=== PATIENT | female | born 1995 | race Caucasian/White ===

== ENCOUNTER → 2019-06-22 10:45 | Outpatient (BNVA) | payer OTHER, SELFPAY | PROVIDERS: Family Provider Family Medicine; PCP Family Medicine; Visit Provider Nurse Practitioner Women's Health | DX: Z11.3 Encounter for screening for infections with a predominantly sexual mode of transmission (principal); N92.6 Irregular menstruation, unspecified; Z13.1 Encounter for screening for diabetes mellitus; Z78.9 Other specified health status; Z12.4 Encounter for screening for malignant neoplasm of cervix | CPT/HCPCS: 83036; 84146; 84443; 84702; 86762; 87491; 87591; 87661 ==

== ENCOUNTER → 2019-06-25 09:09 | Outpatient (BNVA) | payer OTHER, SELFPAY | PROVIDERS: Family Provider Family Medicine; PCP Family Medicine; Referring Provider Nurse Practitioner Women's Health; Visit Provider Obstetrics & Gynecology | DX: N92.6 Irregular menstruation, unspecified (principal) | CPT/HCPCS: 76830; 76856 ==

== ENCOUNTER → 2019-06-27 10:30 | Outpatient (BNVA) | payer OTHER, SELFPAY | PROVIDERS: Family Provider Family Medicine; PCP Family Medicine; Visit Provider Nurse Practitioner Women's Health | DX: N92.6 Irregular menstruation, unspecified (principal); Z78.9 Other specified health status | CPT/HCPCS: 80053; 85025 ==

== ENCOUNTER → 2019-10-29 11:31 | Outpatient (BNVA) | payer OTHER, SELFPAY | PROVIDERS: Family Provider Family Medicine; PCP Family Medicine; Visit Provider Obstetrics & Gynecology | DX: Z32.01 Encounter for pregnancy test, result positive (principal) | CPT/HCPCS: 81025; 84702 ==

== ENCOUNTER → 2019-11-28 09:02 | Outpatient (BNVA) | payer OTHER, MEDICAID, SELFPAY | PROVIDERS: Family Provider Family Medicine; PCP Family Medicine; Visit Provider Obstetrics & Gynecology | DX: O30.001 Twin pregnancy, unspecified number of placenta and unspecified number of amniotic sacs, first trimester (principal); E28.2 Polycystic ovarian syndrome | CPT/HCPCS: 80053; 80307; 82950; 84315; 85027; 86592; 86762; 86803; 86850; 86900; 87340; 87806 ==

== ENCOUNTER → 2019-12-12 07:58 | Outpatient (BNVA) | payer OTHER, MEDICAID, SELFPAY | PROVIDERS: Family Provider Family Medicine; PCP Family Medicine; Visit Provider Obstetrics & Gynecology | DX: O09.90 Supervision of high risk pregnancy, unspecified, unspecified trimester (principal); O30.001 Twin pregnancy, unspecified number of placenta and unspecified number of amniotic sacs, first trimester; Z3A.00 Weeks of gestation of pregnancy not specified | CPT/HCPCS: 84315; 87491; 87591 ==

== ENCOUNTER → 2020-04-02 12:16 | Outpatient (BNVA) | payer MEDICAID, SELFPAY | PROVIDERS: Family Provider Family Medicine; PCP Family Medicine; Visit Provider Obstetrics & Gynecology | DX: O09.90 Supervision of high risk pregnancy, unspecified, unspecified trimester (principal) | CPT/HCPCS: 81000; 82950; 85025 ==

== ENCOUNTER 2020-04-21 14:40 | Outpatient (CLI) | payer OTHER, MEDICAID, SELFPAY ==
[2020-04-21] VITALS (31 sets, daily range): BP systolic 118–134; BP diastolic 71–80; PULSE 90–140; RESP 17–18; TEMP 36.3; O2SAT 92–100; BMI 36.0
== END 2020-04-21 17:15 | disposition home or self-care (01) ==
LOC: OBGYN 17:09 → OPOB 04-22 08:55 → OBGYN 04-22 08:55
PROVIDERS: Family Provider Family Medicine; PCP Family Medicine; Visit Provider Obstetrics & Gynecology
DX: O26.899 Other specified pregnancy related conditions, unspecified trimester (principal); R00.0 Tachycardia, unspecified; R06.02 Shortness of breath
CPT/HCPCS: 99211; G0378; G0379

== ENCOUNTER → 2020-05-06 14:33 | Outpatient (BNVA) | payer MEDICAID, SELFPAY | PROVIDERS: Family Provider Family Medicine; PCP Family Medicine; Visit Provider Nurse Practitioner Women's Health | DX: O30.001 Twin pregnancy, unspecified number of placenta and unspecified number of amniotic sacs, first trimester; Z3A.00 Weeks of gestation of pregnancy not specified | CPT/HCPCS: 81000 ==

== ENCOUNTER → 2020-07-22 15:21 | Outpatient (BNVA) | payer BC, MEDICAID, SELFPAY | PROVIDERS: Family Provider Family Medicine; PCP Family Medicine; Visit Provider Obstetrics & Gynecology | DX: Z30.430 Encounter for insertion of intrauterine contraceptive device (principal) | CPT/HCPCS: 81025 ==

== ENCOUNTER → 2021-07-29 13:48 | Outpatient (BNVA) | payer BC, MEDICAID, SELFPAY | PROVIDERS: Family Provider Family Medicine; PCP Family Medicine; Visit Provider Internal Medicine | DX: R63.5 Abnormal weight gain (principal); E28.2 Polycystic ovarian syndrome; F17.200 Nicotine dependence, unspecified, uncomplicated; Z79.84 Long term (current) use of oral hypoglycemic drugs; Z68.32 Body mass index [BMI] 32.0-32.9, adult | CPT/HCPCS: 99214 ==

== ENCOUNTER 2021-12-04 11:54 | Outpatient (CLI) | payer BC, MEDICAID, SELFPAY ==
[2021-12-04 12:41] LABS: Free T4 Free Thyroxine 1.59 ng/dL (0.82-1.77); Thyroid Stimulating Hormone 1.25 uIU/mL (0.27-4.20)
== END 2021-12-04 11:55 | disposition home or self-care (01) ==
LOC: LAB 11:57
PROVIDERS: Visit Provider Internal Medicine
DX: R63.5 Abnormal weight gain (principal)
CPT/HCPCS: 84439; 84443

== ENCOUNTER 2022-07-27 09:20 | Outpatient (CLI) | payer BC, MEDICAID, SELFPAY ==
--- NOTE | 2022-07-27 09:33 | US_ITS ---
WS: [id number] ULTRASOUND RIGHT BREAST HISTORY: LUMP IN RIGHT BREAST COMPARISON: None available. TECHNIQUE: 2-D and Doppler. Ultrasound is directed to the palpable area at 2:00. This is directed by the patient. There is no mas s identified in the RIGHT breast near the 2:00 axis. The adjacent breast tissues are also imaged with no abnormality. US/US breast RT limited* [id number] IMPRESSION: BI-RADS: 1-Negative FOLLOW-UP: See Report No ultrasound abnormality RIGHT breast at 2:00. No additional imaging necessary .
== END 2022-07-27 09:21 | disposition home or self-care (01) ==
PROVIDERS: Visit Provider Nurse Practitioner Women's Health
DX: N63.10 Unspecified lump in the right breast, unspecified quadrant (principal)
CPT/HCPCS: 76642

== ENCOUNTER → 2022-09-28 09:42 | Outpatient (BNVA) | payer BC, MEDICAID, SELFPAY | PROVIDERS: Visit Provider Internal Medicine | DX: E28.2 Polycystic ovarian syndrome (principal); R63.5 Abnormal weight gain | CPT/HCPCS: 36415; 80061; 83525 ==

== ENCOUNTER 2022-10-16 23:54 | Emergency (ER) | payer BC, MEDICAID, SELFPAY ==
[2022-10-17] VITALS: BP 121/80; PULSE 103; RESP 18; TEMP 36.7; O2SAT 100; BMI 28.0
--- NOTE | 2022-10-17 00:30 | XRR_ITS ---
PROCEDURE INFORMATION: Exam: XR Chest Exam date and time: 10/17/2022 12:42 AM Age: 27 years old Clinical indication: Pain; Chest pressure; Additional info: Cp TECHNIQUE: Imaging protocol: Radiologic exam of the chest. Views: 1 view. COMPARISON: No relevant prior studies available. FINDINGS: Lungs: No CHF/pulmonary edema. Visible lungs appear essentially clear. Pleural spaces: No visible pneumothorax. No definite pleural fluid. Heart/Mediastinum: Heart size is within normal limits. Bones/joints: No significant acute finding. XR/XR chest 1V portable [id number] IMPRESSION: 1. No definite CHF or pneumonia. 2. Other findings discussed above.
--- NOTE | 2022-10-17 00:30 | ECG_ITS ---
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 Measurements Intervals [place] Rate: 104 P: 75 MT: 159 QRS: 69 QRSD: 101 T: 62 QT: 312 QTc: 411 Interpretive Statements SINUS TACHYCARDIA LOW QRS VOLTAGE IN PRECORDIAL LEADS [QRS DEFLECTION < 1.0 mV IN CHEST LEADS] ABNORMAL RHYTHM ECG No previous ECG available for comparison Electronically Signed On 10-17-2022 12:34:57 CDT by Malcik Carpenter M.D. [email or web address]
[2022-10-17 00:41] LABS: Basophils % 0.5 %; Eosinophils # 0.2 10^3/uL (0.0-0.8); Eosinophils % 2.1 %; Hematocrit 42.9 % (37.0-47.0); Hemoglobin 14.1 g/dL (11.5-15.3); Lymphocytes # 2.9 10^3/uL (0.8-4.8); Mean Corpuscular HGB Conc 32.9 g/dL (30.0-36.0); Mean Corpuscular Hemoglobin 27.6 pg (28.0-34.0); Mean Corpuscular Volume 84.1 fl (81-99); Mean Platelet Volume 9.8 fL (7.4-10.4); Monocytes # 0.5 10^3/uL (0.2-0.9); Monocytes % 6.7 %; Neutrophils # 3.83 10^3/uL (1.8-7.7); Neutrophils % 51.4 %; Nucleated Red Blood Cells % 0 %; Platelet Count 281 10^3/cmm (130-400); Red Cell Distribution Width 11.9 % (12.1-15.1); White Blood Count 7.5 10^3/uL (4.0-10.0)
[2022-10-17 00:43] VITALS: PULSE 96; RESP 16; O2SAT 98
[2022-10-17 01:07] LABS: HCG, Serum Qual Negative (Negative)
[2022-10-17 01:10] VITALS: BP 105/72; PULSE 87; RESP 16; O2SAT 97
[2022-10-17 01:10] LABS: Troponin(5th) Baseline 6 ng/L (0-10)
[2022-10-17 01:19] LABS: Alanine Aminotransferase 15 U/L (0-33); Albumin Level 4.4 g/dL (3.5-5.2); Alkaline Phosphatase 50 U/L (35-105); Anion Gap 15.7 (5-19); Aspartate Amino Transferase 11 U/L (0-32); Blood Urea Nitrogen 13 mg/dL (6-20); Carbon Dioxide 25 mmol/L (22-29); Chloride 104 mmol/L (98-107); Globulin 2.7 g/dL (1.3-4.6); Glomerular Filtration Rate 75.7 mL/min (90-130); Glucose 94 mg/dL (65-115); NT Pro B Type Natriuretic Pept 36 pg/mL (0-125); Osmolality Calculated 292 mOsm/kg (285-295); Potassium 3.7 mmol/L (3.5-5.1); Sodium 141 mmol/L (136-145); Total Bilirubin 0.4 mg/dL (0.15-1.2); Total Protein 7.1 g/dL (6.6-8.7)
[2022-10-17] MEDS: ketorolac 30 mg/mL INJ 15 MG IVP (01:56)
[2022-10-17] MEDS: ondansetron 2 mg/ML SDV 2 mL 4 MG IVP (01:57)
[2022-10-17 02:09] VITALS: BP 105/72; PULSE 87; RESP 16; TEMP 36.7; O2SAT 97
--- NOTE | 2022-10-17 02:22 | ED_ITS ---
HPI - Chest Pain General: Chief Complaint: Chest Pain Stated Complaint: chest pain Time Seen by Provider: 10/17/22 00:28 Source: patient History of Present Illness: 27-year-old female with centralized chest discomfort. It is somewhat sharp in nature. She is not overly short of breath. She does feel like it is hard to breathe. No fever, no increased cough. No vomiting. MD complaint: chest pain Pertinent past history: other Onset (ago): hour(s) Timing of current episode: constant Onset: during rest Pain location: substernal Relieving factors: nothing Exacerbating factors: nothing Associated symptoms: Reports dyspnea; Deny abdominal pain, fever(s), leg edema or vomiting Review of Systems Const: Denies: fever(s) Resp: Reports: dyspnea GI: Denies: abdominal pain or vomiting PFS ED PFSH: Medical History No pertinent past medical history Denies diabetes, asthma, hypertension, seizures, DVT/PE. PMD: none PCOS (polycystic ovarian syndrome) Diagnosed with PCOS in May 2019 with irregular cycles and polycystic appearance of ovary on ultrasound. Surgical History Status post delivery 05/26/2020-- delivery at [facility] in [place], [place]. -Primary low transverse uterine incision with double layer closure and no extensions. By Dr. Morris ---done at 35 weeks and 5 days for preeclampsia with severe features of headaches with monochorionic diamniotic twin gestation. -Pathology of placenta confirmed monochorionic diamniotic placenta. Family History Family/Other Breast cancer Maternal aunt; diagnosed in her 40s Father Hypertension Grandfather Lung cancer maternal Denies family history of Colon cancer Ovarian cancer Diabetes Heart disease Hyperlipidemia Uterine cancer Thyroid condition Stroke Social History Substance/Drug Use: never Female Reproductive History: Date of last menstrual period: 06/30/22 Physical Exam Const: COMMON NORMALS: no acute distress GENERAL APPEARANCE: cooperative; not ill appearing and not frail appearing HENMT: COMMON NORMALS: normocephalic, atraumatic and Normal external nose present HEAD & SCALP: normocephalic and atraumatic FACE & SINUS: normal facial exam and face symmetric NOSE: Normal external nose present Eye: COMMON NORMALS: Equal, round and reactive pupils present and EOMs intact bilaterally PUPIL: Yes Equal, round and reactive pupils present Neck/C-Spine: GENERAL: Yes trachea midline Chest: CHEST: Yes Symmetrical chest wall rise Resp: COMMON NORMALS: normal respiratory effort, No retractions, No use of accessory muscles and clear to auscultation bilaterally AUSCULTATION: clear to auscultation bilaterally Cardio: COMMON NORMALS: regular rate and regular rhythm RATE: regular rate RHYTHM: regular rhythm GI: COMMON NORMALS: Normal to inspection, nondistended, normoactive bowel sounds present Extremity: COMMON NORMALS: no pedal edema Neuro: YUDELKA COMA SCALE: document GCS findings Yudelka coma scale eye opening: Spontaneous Yudelka coma scale verbal response: Orientated Yudelka coma scale motor response: Obey commands Yudelka coma scale total score: 15 SENSORY EXAM: Yes extremities (intact) Psych: COMMON NORMALS: speech normal SPEECH: Yes normal speech Skin: COMMON NORMALS: no rashes or lesions noted GENERAL SKIN EXAM: no rashes or lesions noted Course Vital Signs: Vital signs: Vital Signs Temperature 98.1 F 10/17/22 02:09 Pulse Rate 87 10/17/22 02:09 Respiratory Rate 16 10/17/22 02:09 Blood Pressure 105/72 10/17/22 02:09 Pulse Oximetry 97 10/17/22 02:09 Oxygen Delivery Me thod Room Air 10/17/22 00:00 MDM - Chest Pain Medical Decision Making Vitals are normal. CBC and BMP are not remarkable. Troponin is normal. D- dimer is normal. Chest x-ray is negative. EKG shows no acute ST changes. She will be allowed discharged to return if symptoms worsen. Lab Data 10/17/22 00:35 10/17/22 00:35 Radiology Impressions Chest X-Ray 10/17/22 00:30 IMPRESSION: 1. No definite CHF or pneumonia. 2. Other findings discussed above. Laboratory Results WBC 7.5 10^3/uL (4.0-10.0) 10/17/22 00:35 RBC 5.10 10^6/uL (4.1-5.3) 10/17/22 00:35 Hgb 14.1 g/dL (11.5-15.3) 10/17/22 00:35 Hct 42.9 % (37.0-47.0) 10/17/22 00:35 MCV 84.1 fl (81-99) 10/17/22 00:35 MCH 27.6 pg (28.0-34.0) L 10/17/22 00:35 MCHC 32.9 g/dL (30.0-36.0) 10/17/22 00:35 RDW 11.9 % (12.1-15.1) L 10/17/22 00:35 Plt Count 281 10^3/cmm (130-400) 10/17/22 00:35 MPV 9.8 fL (7.4-10.4) 10/17/22 00:35 Neut % (Auto) 51.4 % 10/17/22 00:35 Lymph % (Auto) 39.0 % 10/17/22 00:35 Benzie % (Auto) 6.7 % 10/17/22 00:35 Eos % (Auto) 2.1 % 10/17/22 00:35 Baso % (Auto) 0.5 % 10/17/22 00:35 Neut # (Auto) 3.83 10^3/uL (1.8-7.7) 10/17/22 00:35 Lymph # (Auto) 2.9 10^3/uL (0.8-4.8) 10/17/22 00:35 Benzie # (Auto) 0.5 10^3/uL (0.2-0.9) 10/17/22 00:35 Eos # (Auto) 0.2 10^3/uL (0.0-0.8) 10/17/22 00:35 Baso # (Auto) 0.0 10^3/uL (0.0-0.1) 10/17/22 00:35 Nucleated RBC % (auto) 0 % 10/17/22 00:35 Nucleated RBCs # 0.0 /100WBC 10/17/22 00:35 D-Dimer 0.40 ug/mIFEU (0-0.59) 10/17/22 00:35 Sodium 141 mmol/L (136-145) 10/17/22 00:35 Potassium 3.7 mmol/L (3.5-5.1) 10/17/22 00:35 Chloride 104 mmol/L (98-107) 10/17/22 00:35 Carbon Dioxide 25 mmol/L (22-29) 10/17/22 00:35 Anion Gap 15.7 (5-19) 10/17/22 00:35 BUN 13 mg/dL (6-20) 10/17/22 00:35 Creatinine 0.9 mg/dL (0.5-0.9) 10/17/22 00:35 GFR Calculation 75.7 mL/min (90-130) L 10/17/22 00:35 Glucose 94 mg/dL (65-115) 10/17/22 00:35 Calculated Osmolality 292 mOsm/kg (285-295) 10/17/22 00:35 Calcium 9.0 mg/dL (8.5-10.5) 10/17/22 00:35 Total Bilirubin 0.4 mg/dL (0.15-1.2) 10/17/22 00:35 AST 11 U/L (0-32) 10/17/22 00:35 ALT 15 U/L (0-33) 10/17/22 00:35 Alkaline Phosphatase 50 U/L (35-105) 10/17/22 00:35 Troponin T Baseline 6 ng/L (0-10) 10/17/22 00:35 NT-Pro-B Natriuret Pep 36 pg/mL (0-125) 10/17/22 00:35 Total Protein 7.1 g/dL (6.6-8.7) 10/17/22 00:35 Albumin 4.4 g/dL (3.5-5.2) 10/17/22 00:35 Globulin 2.7 g/dL (1.3-4.6) 10/17/22 00:35 HCG, Qual Negative (Negative) 10/17/22 00:35 Discharge Plan Discharge Patient Disposition: Home Clinical Impression: Chest pain Condition: Stable Prescriptions: New ketorolac 10 mg tablet 10 mg PO TID PRN (Reason: pain) Qty: 10 0RF No Action Mirena 20 mcg/24 hours (6 yrs) 52 mg intrauterine device 1 device intrauterine .every 5 years Qty: 1 0RF Discharge Orders: Discharge ED (Routine); Ordered 10/17/22 Ordered By: Jae Tyler Patient Instructions: Chest Pain (ED), Chest Wall Pain (ED) Activity Restrictions/Additional Instructions: Medication as directed. Return for worsening pain despite treatment, vomiting liquids or medications, worsening shortness of breath, or other concerning symptoms. See your doctor this week in follow-up Coding Level of Care Code ED Area Operations Manager for Jacki Schafer
--- NOTE | 2022-10-27 13:51 | DCPLANNER ---
TCM called patient due to no primary care physician - no answer at this time.
== END 2022-10-17 02:09 | disposition home or self-care (01) ==
PROVIDERS: Emergency Provider Emergency Medicine
DX: R07.9 Chest pain, unspecified (principal)
CPT/HCPCS: 71045; 80053; 83880; 84484; 84703; 85025; 85378; 93005; 96374; 96375; 99285; J1885; J2405

== ENCOUNTER → 2023-05-04 11:50 | Outpatient (BNVA) | payer BC, MEDICAID, SELFPAY | PROVIDERS: PCP Family Medicine; Referring Provider Family Medicine; Visit Provider Internal Medicine Rheumatology | DX: Z79.899 Other long term (current) drug therapy (principal); M19.90 Unspecified osteoarthritis, unspecified site | CPT/HCPCS: 36415; 73130; 73630; 80076; 82306; 82565; 85025; 85651; 86038; 86140; 86200; 86431 ==

== ENCOUNTER 2023-07-05 07:04 | Outpatient (CLI) | payer BC, MEDICAID, SELFPAY ==
--- NOTE | 2023-07-05 07:15 | USCV_ITS ---
Rachel Reyes Age: 28 Gender: F : 1995 Exam Date: 07/05/2023 07:26 Ordering Phys: Morgan Najera MD ([email or web address]) Technologist: SHUBHAM Exam Location: [facility] [place] Indication: Palpatation BP: 135 / 95 HR: 72 Rhythm: Sinus Technical Quality: Adequate MEASUREMENTS (Male / Female) Normal Values 2D ECHO LV Diastolic Diameter PLAX 5.5 cm 4.2 - 5.9 / 3.9 - 5.3 cm LV Systolic Diameter PLAX 3.8 cm LV Chamber Size 3.4 cm IVS Diastolic Thickness 0.6 cm 0.6 - 1.0 / 0.6 - 0.9 cm IVS Systolic Thickness 1.3 cm LVPW Diastolic Thickness 1.0 cm 0.6 - 1.0 / 0.6 - 0.9 cm LVPW Systolic Thickness 1.3 cm RV Chamber Size 2.3 cm LVOT Diameter 2.2 cm LV Ejection Fraction 2D Teich 56.8 % LV Ejection Fraction MOD 2C 53.1 % LV Ejection Fraction 2C AL 55.4 % LA Diameter 1.7 cm LA Width 3.5 cm LA Height 3.1 cm RA Width 3.2 cm RA Height 3.5 cm Aorta at Sinotubular Diameter 3.6 cm IVC Diameter 1.7 cm M-MODE Aortic Annulus Diameter 3.4 cm LA Ao Ratio MM 0.0 MV E Point Septal Separation 0.6 cm DOPPLER AV Peak Velocity 117.0 cm/s LVOT Peak Velocity 87.0 cm/s AV Area Cont Eq vti 2.9 cm squared AV Area Cont Eq pk 2.9 cm squared MV Area PHT 5.0 cm squared Mitral E to A Ratio 1.6 MV E' Velocity 49.5 cm/s Mitral E to MV E' Ratio 5.8 Mitral E to LV E' Lateral Ratio 4.8 Mitral E to LV E' Septal Ratio 7.3 TR Peak Velocity 171.0 cm/s TR Peak Gradient 11.7 mmHg TR Mean Velocity 118.9 cm/s TR Mean Gradient 6.5 mmHg TR Velocity Time Integral 47.6 cm TV Peak E Velocity 77.0 cm/s Right Atrial Pressure 3.0 mmHg Pulmonary Artery Systolic Pressu 14.7 mmHg RV Acceleration Time 0.2 s RV Ejection Time 0.4 s RV AcT/ET 0.4 FINDINGS Left Ventricle Left ventricle is mildly dilated. LV systolic function is normal with EF of 50 to 55%. No regional wall motion abnormalities are seen. Right Ventricle Normal in size and function Right Atrium Normal in size Left Atrium Normal in size Mitral Valve Possible mitral valve prolapse is seen. Aortic Valve Structurally normal aortic valve. No significant stenosis or regurgitation seen. Tricuspid Valve Mild tricuspid regurgitation. Pulmonary artery systolic pressure is normal. Pulmonic Valve Not well visualized Pericardium Normal Aorta Normal in size IVC Appears to be normal CONCLUSIONS Left ventricle is mildly dilated. LV systolic function is normal with EF of 50 to 55%. Possible mitral valve prolapse noted. Mild tricuspid regurgitation No comparison studies are available Malick Carpenter MD (Electronically Signed) Final Date: 18 July 2023 09:43 S
== END 2023-07-05 07:05 | disposition home or self-care (01) ==
LOC: RAD 07:05
PROVIDERS: PCP Family Medicine; Visit Provider Internal Medicine Cardiovascular Disease
DX: I07.1 Rheumatic tricuspid insufficiency (principal); R07.9 Chest pain, unspecified
CPT/HCPCS: 93306

== ENCOUNTER 2023-08-03 10:59 | Outpatient (CLI) | payer BC, MEDICAID, SELFPAY ==
[2023-08-04 12:33] LABS: CENTROMERE B ANTIBODY <1.0 NEG AI (<1.0 NEG); JO-1 ANTIBODY <1.0 NEG AI (<1.0 NEG); RNP ANTIBODY <1.0 NEG AI (<1.0 NEG); SCL-70 ANTIBODY <1.0 NEG AI (<1.0 NEG); SJOGREN'S ANTIBODY (SS-A) <1.0 NEG AI (<1.0 NEG); SM ANTIBODY <1.0 NEG AI (<1.0 NEG); SS-B <1.0 NEG AI (<1.0 NEG)
[2023-08-04 15:28] LABS: COMPLEMENT COMPONENT C3C 153 mg/dL (83-193); COMPLEMENT COMPONENT C4C 18 mg/dL (15-57)
[2023-08-05 07:54] LABS: THYROID PEROXIDASE ANTIBODIES 3 IU/mL (<9)
[2023-08-05 10:30] LABS: ANA SCREEN, IFA POSITIVE (NEGATIVE)
[2023-08-05 14:51] LABS: COMPLEMENT, TOTAL (CH50) >60 U/mL (31-60)
[2023-08-09 00:01] LABS: DNA AB (DS) CRITHIDIA,IFA NEGATIVE (NEGATIVE)
== END 2023-08-03 11:00 | disposition home or self-care (01) ==
LOC: LAB 11:03
PROVIDERS: Internal Medicine Rheumatology; PCP Family Medicine; Visit Provider Family Medicine
DX: M25.50 Pain in unspecified joint (principal)
CPT/HCPCS: 36415; 86160; 86162; 86235; 86255; 86376

== ENCOUNTER 2023-10-18 12:31 | Outpatient (CLI) | payer BC, MEDICAID, SELFPAY ==
--- NOTE | 2023-10-18 | ECG_ITS ---
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 Interpretive Statements NAME OF STUDY: TREADMILL STRESS TEST INDICATION: Abnormal ECHO RESULTS TO DR DOZIER PROCEDURE: At the baseline, the patient's blood pressure was 105/67 with a heart rate of 78. The baseline electrocardiogram showed normal sinus rhythm with normal ST-Ts. Probably progression. Nonspecific T wave changes. The patient exercised for 9 minutes and 19 seconds on a modified Jeremie protocol. Patient attained a maximum heart rate of 119 beats per minute(103 % of the maximum predicted heart rate) with a blood pressure at the peak exercise of 118/84 mm Hg. The EKG at the peak exercise revealed no significant changes. Patient did not have any chest pain or any significant cardiac arrhythmias with the exercise During the recovery phase, there were no new changes. Blood pressure at the end of the recovery phase was 107/65 mm Hg with a heart rate of 123 per minute. CONCLUSION: 1. No significant EKG changes with the treadmill exercise 2. No exercise-induced chest pain or cardiac arrhythmia 3. Good exercise tolerance, attained a maximum of 13.5 METs Electronically Signed On 10-24-2023 18:30:18 CDT by Morgan Najera M.D. [id number]
[2023-10-18 12:35] VITALS: BMI 30.2
[2023-10-18 13:28] VITALS: BP 109/76; PULSE 115
== END 2023-10-18 12:32 | disposition home or self-care (01) ==
PROVIDERS: PCP Family Medicine; Visit Provider Internal Medicine Cardiovascular Disease
DX: R93.1 Abnormal findings on diagnostic imaging of heart and coronary circulation (principal)
CPT/HCPCS: 93017

== ENCOUNTER → 2024-11-28 11:27 | Outpatient (BNVA) | payer BC, MEDICAID, SELFPAY | PROVIDERS: PCP Family Medicine; Visit Provider Internal Medicine Rheumatology | DX: R76.8 Other specified abnormal immunological findings in serum (principal); M25.50 Pain in unspecified joint; E28.2 Polycystic ovarian syndrome; M24.80 Other specific joint derangements of unspecified joint, not elsewhere classified | CPT/HCPCS: 36415; 80076; 82565; 82652; 85025; 85651; 86140 ==

== ENCOUNTER 2024-12-06 21:51 | Emergency (ER) | payer BC, MEDICAID, SELFPAY ==
--- OUTSIDE RECORDS SUMMARY | 2024-12-06 22:02 | XMS_ITS | Data Portability ---
Author Organization RANDY Ramires [facility], [facility] Address [address] [address] Assessment Encounter Date Assessment Date Assessment LastModified by Organization Details LastModified Time 12/15/2022 12/15/2022 records request ER kenisha ken had heart attack or stroke at age 40 Not available 12/25/2022 11:18:22 12/28/2022 12/28/2022 We had a long discussion about pts symptoms and her evaluation this far being unrevealing. It seems any major heart or lung issues have been ruled out. We discussed the possibility of POTS. She strongly believes she has EDS and would like to be tested for it. I am not comfortable diagnosing EDS and have referred her to genetics. We will also send her to Rheum to r/o any autoimmune issue. Not available 01/05/2023 15:13:30 Plan of Treatment Reminders Order Date Submit Date Provider Last Modified By Organization Details Last Modified Time Details Appointments ULTRASO UND 2024 09:30A M ULTRASOUND Not available Not available Not available Lab HbA1c (hemogl obin A1c), blood 2023 024 [email or web address] [facility] ([facility]), [address] [place], [address], 09/20/2023 14:10:19 CMP, serum or plasma 2023 024 [email or web address] [facility], [address] [place] [address], [place], [address], 09/20/2023 14:10:19 Referral cardiol ogist referra l 2022 023 Not available 05/21/2023 12:52:52 rheumat ologist referra l 2022 023 [email or web address] Sergei Ernandez MD, [address] [place], [address], 02/01/2023 13:54:54 genetic s referra l 2022 023 [email or web address] Not available 03/01/2023 11:08:55 Procedures None recorde d. Surgeries None recorde d. Imaging US, extremi ty, nonvasc ular, limited - Lump, Lipoma? left extenso r elbow. 2024 025 [email or web address] [facility], [address] [place], [address], 12/04/2024 07:32:36 holter monitor [address] (Scheduling Orders), [address] [place], [address], 01/21/2023 11:57:30 Medication Orders None recorde d. Patient TargetsNo targets recorded. Patient InstructionsNo instructions recorded. Reason for Referral Genetics Referral for Hyperm obility of joint Referring Physician: [facility], Encounter Date: 12/15/2022 Manager System Referral for Pain of multiple joints Referring Physician: [facility], Encounter Date: 12/28/2022 Audit Officer Referral for Dy spnea Referring Physician: [facility], Encounter Date: 01/13/2023 Results Created Date Observation Date Name Description Value Unit Range Abnormal Flag Note LastModifiedBy Organization Detail LastModifiedTime 09/20/19 24 09/20/2023 CMP (FEMA LE) glucose 92.0 mg/dL 60.0-9 9.0 Not Available [facility] [address] [facility], [place], [address], 09/20/2023 13:54:57 09/20/19 24 09/20/2023 CMP (FEMA LE) BUN (blood urea nitrogen) 11.0 mg/dL 10.0-2 6.0 Not Available [facility] [address] [address], [place], [address], 09/20/2023 13:54:57 09/20/19 24 09/20/2023 CMP (FEMA LE) creatinine (serum) 0.6 mg/dL 0.4-1. 5 Not Available [facility] [address] [facility], [place], [address], 09/20/2023 13:54:57 09/20/19 24 09/20/2023 CMP (FEMA LE) BUN/creatini ne ratio 18.33 ratio Not Available [facility] [address] [facility] [address] [address], [place], [address], 09/20/2023 13:54:57 09/20/19 24 09/20/2023 CMP (FEMA LE) eGFR calculated 127.5 Not Available [facility] [address] [facility] [address] [address], [place], [address], 09/20/2023 13:54:57 09/20/19 24 09/20/2023 CMP (FEMA LE) total protein 7.6 g/dL 6.0-8. 5 Not Available [facility] [address] [facility] [address] [address], [place], [address], 09/20/2023 13:54:57 09/20/19 24 09/20/2023 CMP (FEMA LE) total bilirubin 0.7 mg/dL 0.2-1. 3 Not Available [facility] [address] [facility] [address] [address], [place], [address], 09/20/2023 13:54:57 09/20/19 24 09/20/2023 CMP (FEMA LE) albumin 4.5 g/dL 3.5-5. 5 Not Available [facility] [address] [facility], [place], [address], 09/20/2023 13:54:57 09/20/19 24 09/20/2023 CMP (FEMA LE) globulin 3.[address] [facility] [address] [facility], [place], [address], 09/20/2023 13:54:57 09/20/19 24 09/20/2023 CMP (FEMA LE) AST (SGOT) 27.0 U/L 0.0-46 .0 Not Available [facility] [address] [facility], [place], [address], 09/20/2023 13:54:57 09/20/19 24 09/20/2023 CMP (FEMA LE) altv (SGPT) 21.0 U/L 13.0-6 9.0 normal Not Available [facility] [address] [facility], [place], [address], 09/20/2023 13:54:57 09/20/19 24 09/20/2023 CMP (FEMA LE) A/G ratio 1.5 ratio Not Available [facility] [address] [facility], [place], [address], 09/20/2023 13:54:57 09/20/19 24 09/20/2023 CMP (FEMA LE) ALP phos 54.0 U/L 30.0-1 40.0 normal Not Available [facility] [address] [facility], [place], [address], 09/20/2023 13:54:57 09/20/19 24 09/20/2023 CMP (FEMA LE) calcium 9.5 mg/dL 8.4-10 .5 Not Available [facility] [address] [facility] 1, [place], [address], 09/20/2023 13:54:57 09/20/19 24 09/20/2023 CMP (FEMA LE) sodium 142.0 mmol/ L 136.0- 145.0 Not Available [facility] [address] [facility] 1, [place], [address], 09/20/2023 13:54:57 09/20/19 24 09/20/2023 CMP (FEMA LE) potassium 4.3 mmol/ L 3.5-5. 1 Not Available [facility] [address] [address], [place], [address], 09/20/2023 13:54:57 09/20/19 24 09/20/2023 CMP (FEMA LE) chloride 107.0 mmol/ L 98.0-1 10.0 normal Not Available [facility] [address] [address], [place], [address], 09/20/2023 13:54:57 09/20/19 24 09/20/2023 CMP (FEMA LE) C02 30.0 mmol/ L 22.0-3 1.0 Not Available [facility] [address] [facility] 1, [place], [address], 09/20/2023 13:54:57 09/20/19 24 09/20/2023 CMP (FEMA LE) anion gap 5.0 calc Not Available [facility] [address] [facility] 1, [place], [address], 09/20/2023 13:54:57 09/20/19 24 09/20/2023 CMP (FEMA LE) osmolality 292.3 calc Not Available [facility] [address] [facility] 1, [place], [address], 09/20/2023 13:54:57 09/20/19 24 09/20/2023 HbA1c (hemo globi n A1c), blood HbA1c 5.2 Not Available [facility] ([facility]) [address] [place], [address], 09/20/2023 11:16:24 10/24/19 24 10/18/2023 cardi ac stres s test No observ ation record ed. [email or web address] [facility] [address] [place], [address], 10/27/2023 12:52:12 Result Notes None recorded. Problems Name Problem SNOMED Code Status Onset Date Resolution Date Notes Provider Name and Address Organization Details Recorded Time Essential hypertension 05623863 Active 2023 RANJEET adams [facility]LWill 11:13:29 Problem Notes None recorded. Procedures Surgical History Date Name Laterality Status Provider Name and Address Organization Details Recorded Time 0 delivery completed JAIME OTOOLE [facility] L.L.CBhavya 12/15/2022 14:39:51 0 Date of Last Pap Smear completed JAIME OTOOLE [facility] L.LBhavyaCBhavya 12/15/2022 14:38:28 Imaging Results None recorded. Procedure Notes None recorded. Medical Equipment None Reported. Allergies No known drug allergies Medications Name Sig Start Date Stop Date Status Note LastModified by Organization Details LastModified Time Mirena 21 mcg/24 hr (up to 8 years) 52 mg intrauter ine device Take by intraute rine route. active Not Available Not Available No t Available prednison e 20 mg tablet TAKE 3 TABLETS BY MOUTH ONCE DAILY FOR 5 DAYS 12/15 completed Not Available Not Available Not Available erythromy marisa 5 mg/gram (0.5 %) eye ointment INSTILL 1 CM RIBBON OF OINTMENT INTO AFFECTED EYE(S) ONCE DAILY FOR 10 DAYS 12/15 completed Not Available Not Available Not Available metoprolo l succinate ER 25 mg tablet,ex tended release 24 hr TAKE 1 TABLET BY MOUTH ONCE DAILY active Reinaldo. Not Available Not Available No t Available erythromy mraisa with ethanol 2 % topical gel APPLY TOPICALL Y TO AFFECTED AREA ONCE DAILY FOR 10 DAYS 12/15 completed Not Available Not Available Not Available metoprolo l tartrate 25 mg tablet TAKE 1 TABLET BY MOUTH TWICE DAILY 11/21 completed Not Available Not Available Not Available erythromy marisa daily 12/28 completed VO AB/MA; Recorded 04/23/20 5:27PM by Nate Huang al Summary; Refill Quantity : 0; Not Available Not Available Not Available Qsymia 7.5 mg-46 mg capsule, extended release TAKE 1 CAPSULE BY MOUTH ONCE DAILY 12/15 completed Not Available Not Available Not Available Vitals Date Recorded Body height Body mass index (BMI) Body weight Body temperature Oxygen saturation Oxygen saturation in Arterial blood by Pulse oximetry Heart rate Systolic And Diastolic Provider Name and Address Organization Details Last Updated DateTime 4 175.26 cm 30.4 kg/m2 78425.0 3 g 97.7 [degF] 97 % 97 % 77 /min 122/70 mm[Hg] RANJEET REYES [facility] L.L.CBhavya 4 11:13:10 Date Recorded Body weight Body temperature Oxygen saturation Oxygen saturation in Arterial blood by Pulse oximetry Heart rate Systolic And Diastolic Provider Name and Address Organization Details Last Updated DateTime 5 561500. 88 g 98.1 [degF] 98 % 98 % 81 /min 100/80 mm[Hg] JAIME OTOOLE [facility]CB[facility]ya 5 12:09:38 Date Recorded Body weight Body mass index (BMI) Body height Body temperature Oxygen saturation Oxygen saturation in Arterial blood by Pulse oximetry Heart rate Systolic And Diastolic Provider Name and Address Organization Details Last Updated DateTime 3 69213.2 9 g 29.2 kg/m2 175.26 cm 99.2 [degF] 95 % 95 % 87 /min 118/80 mm[Hg] JAIME OTOOLE [facility] 3 14:37:14 Date Recorded Body height Body mass index (BMI) Body weight Body temperature Oxygen saturation Oxygen saturation in Arterial blood by Pulse oximetry Heart rate Systolic And Diastolic Provider Name and Address Organization Details Last Updated DateTime 3 175.26 cm 29.5 kg/m2 61504.4 7 g 98.2 [degF] 99 % 99 % 87 /min 130/80 mm[Hg] JAIME VILLALOBOSH XIANG [facility]L.CBhavya 3 12:15:13 Date Recorded Body height Body mass index (BMI) Body weight Body temperature Oxygen saturation Oxygen saturation in Arterial blood by Pulse oximetry Heart rate Systolic And Diastolic Provider Name and Address Organization Details Last Updated DateTime 3 175.26 cm 29.5 kg/m2 66319.4 7 g 98.4 [degF] 98 % 98 % 80 /min 124/74 mm[Hg] RANJEET REYES [facility] L.LBhavyaCBhavya 3 12:31:51 Social History Question Answer Notes LastModified by AMEE Details LastModified Time Tobacco Smoking Status Current Every Day Smoker vape JAIME VILLALOBOSH XIANG [facility] L.L.CBhavya 12/15/2022 14:39:30 What Was The Date Of Your Most Recent Tobacco Screening? 11/21/2024 [email or web address] Information not available 11/21/2024 Sex: Unknown Functional Status Question Answer Note LastModified by AMEE Details LastModified Time Do you use any illicit or recreational drugs? No [email or web address] Information not available 09/20/2023 What is your level of alcohol consumption? None [email or web address] Information not available 09/20/2023 Mental Status None recorded. Family History Relationship Description Onset Age of this Age Resolved Age Notes LastModified by Organization Details LastModified Time Mother Environmenta l allergy [email or web address] Not available 11/27 14:46:15 Notes:maternal grandfather h as cancer, heart problems. brother thyroid problems. Paternal grandmother obesity. Daughter neurological disorders. Medical History Condition Response Coronary Artery Disease N Other N Gout N Kidney Stones N Blood Diseases N Hyperthyroidism N Breast Cancer N Blood Transfusion N Depression N Hypothyroidism N Lung Disease N COPD N Developmental or Behavioral Disorders N Defects or Inherited Disease N Breast Problem N Difficulty Swallowing N Anesthesia Complications N Anxiety Disorder N Meniere's disease N Muscle, Joint, or Bone Problems N Vision or Eye Problems N Arthritis N Infertility N Polyps N Cancer N Stroke N Varicosities N Endometriosis N Bladder or Kidney Problems N High Cholesterol N Liver Disease N Fibromyalgia N Headaches N Kidney Disease N Allergies/Hayfever N Heart Problems N Ear or Hearing Problems N Hospitalizations N Thyroid Problems N GI Problems N ADD/ADHD N Skin Problems N Eating Disorder N Anemia N Constipation N Mental Illness N Ovarian Cancer N Diabetes N Bedwetting N Seizures/Epilepsy N Tuberculosis N Eczema N Diverticulitis N Abuse/Domestic Violence N Asthma N Reflux/GERD N Hepatitis N Heart Disease N Pulmonary Embolism N Pre-Eclampsia N Hypertension N Chronic Ear Infections N Osteoporosis N Chicken Pox N Autism Spectrum Disorder (ASD) N Thrombophilias N Gynecological History Statement/Question Response Abnormal Pap N Date of Last Pap Smear 05/30/2019 Current Control Method IUD Date of LMP 07/04/2023 LMP Approximate Obstetrics History GPAL:G 3 P 2 0 1 2 Type Value Full Term 2 Spontaneous 1 Living 2 Total 3 Immunizations Vaccine Type Date Status Note Provider Nam e and Address Organization Details Recorded Time IPV 12/28/2001 [facility] 12/15/2022 14:37:27 MMR 12/28/2001 completed JAIME adams [facility] Jessy 12/15/2022 14:37:27 MMR 02/05/1997 completed JAIME adams [facility] 12/15/2022 14:37:27 Hep B, unspecified formulation 1996 completed JAIME adams [facility] 12/15/2022 14:37:27 Hep B, unspecified formulation 1996 completed JAIME adams [facility], [facility] 12/15/2022 14:37:27 Hep B, unspecified formulation 1996 completed JAIME adams [facility] 12/15/2022 14:37:27 OPV 10/17/1997 completed JAIME OTOOLE null, [facility] 12/15/2022 14:37:27 OPV 1996 completed JAIME OTOOLE null, [facility] 12/15/2022 14:37:27 OPV 02/05/1997 completed JAIME OTOOLE null, [facility] 12/15/2022 14:37:27 Hib (HbO) 1996 completed JIAME OTOOLE null, [facility] 12/15/2022 14:37:27 Hib (HbO) 02/05/1997 completed JAIME OTOOLE null, [facility] 12/15/2022 14:37:27 Hib (PRP-T) 10/17/1997 completed JAIME OTOOLE null, [facility] 12/15/2022 14:37:27 DTaP 10/17/1997 completed JAIME OTOOLE null, [facility] 12/15/2022 14:37:27 DTaP 1996 completed JAIME OTOOLE null, [facility] 12/15/2022 14:37:27 DTaP 12/28/2001 completed JAIME OTOOLE null, [facility] 12/15/2022 14:37:27 DTaP 02/05/1997 completed JAIME OTOOLE null, [facility] 12/15/2022 14:37:27 Past Encounters Encounter ID Performer Location Encounter Start Date Encounter Closed Date Diagnosis/Indication Diagnosis SNOMED-CT Code Diagnosis ICD10 Code Diagnosis Note [id number] Betsey Squires MD [facility] ([facility]) [address] [place] [phone] 12/15/2022 14:20:45 12/25/2022 21:50:55 Tight chest 24752275 R07.89 Not associated with exertion - which would make it very atypical for heart/lung issue. await ER records. 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 . [id number] Betsey Squires MD [facility] ([facility]) [address] [place] [address] [id number] 5 01/13/2023 12:23:19 01/13/2023 15:00:30 Dyspnea 120984793 R06.00 [id number] Betsey Squires MD [facility] ([facility]) [address] [place] [id number] 09/20/2023 11:03:04 09/20/2023 15:45:22 Glucose level above reference range 28558368 R89.8 on home accucheck when not feeling well. [id number] Betsey Squires MD [facility] ([facility]) [address] [place] [address] [id number] 11/21/2024 12:05:30 12/04/2024 07:32:36 Mass of skin 904037517 R22.9 lipoma vs other, difficult to appreciate , since she indicates the epitroclea r area we will get u/s to assess for enlarged nodes - non were appreciate d on exam. 11/21/24 Health Concerns Section Related Observation LastModified by Organization Detai ls LastModified Time None Recorded Concern Status LastModified by Organization Details LastModified Time None Recorded Advance Directives Directive None Recorded Payers Insurance Date Sequence Insurance Name Policy Number Policy Cruz Covered Member ID Cruz Member ID Guarantor Name 11/21/2024 1 BCMICHELLE-RANDY (PPO) [id number] 1 Rachel M Reyes [id number] Rachel M Reyes 12/04/2024 1 [employer] [place]MED[place]PLAC[place] - HMO) [id number] Rachel M Reyes [id number] Rachel M Perham Notes Date Note Type Note Provider Name and Address Organization Details Recorded Time 12/15/2022 text/html DyspneaReported bypatient.Quality:pre ssure;can't catch breath;inability to take a deep breath Severity:moderate Duration:symptoms last 1 hours Onset/Timing:daily Associated Symptoms:no chest pain past 1-1.5 month, episodes of being hard to breathe, get really shaky, waking up sweating,happens randomly - sitting or standing or going to bed, feels the squeezing first, drinking hot tea helps - thats the only thing-makes it easier to breathe.no triggers that she can identify.it can not happen for a few days then happen 3 times in one day.used to have anxiety but not now, dont feel anxious leading up to it. get exhausted when on my feet for too long.no energy here lately.no trouble up and down flights of stairs doesn't bother her or cause the trouble breathing. occasional bleeding -light with the IUD.went to doctor in Jun - /s done on chest and they said it was just dense tissue - done thru the hospital. has been to the ER for it.EKG looked normal, xray looked fine. symptoms stopped right before she got to the ER.dx with costochondritis.they did some blood work and it was good. Thinks she might have EDS. She is pretty sure she does. Has read a lot about it.bruises easily, been double jointed, does not have stretchy skin though. she wonders if the episodes are somehow linked to EDS. she would like to be tested for it. Betsey Squires MD [address] [place] [address], [phone], [facility], Jessy 12/25/2022 11:29:23 12/28/2022 text/html DyspneaReported bypatient.Quality:squ eezing;tightness;can' t catch breath;suffocating;in ability to take a deep breath;hurts to breathe Severity:moderate Onset/Timing:daily Associated Symptoms:no chest pain; no fever; no chills; no sputum production;palpitatio ns;wheezing;fatigue;l ightheadedness;hoarse ness;seasonal allergies Pt is here for follow-up Betsey Squires MD [address] [place] [address], [phone], [facility], Jim. 01/05/2023 15:13:43 01/13/2023 text/html DyspneaReported bypatient.Quality:squ eezing;tightness;can' t catch breath;suffocating;in ability to take a deep breath;hurts to breathe Severity:moderate Onset/Timing:daily Associated Symptoms:no chest pain; no fever; no chills; no sputum production;palpitatio ns;fatigue;lightheade dness;seasonal allergies a Friend told her about afib and she started reading the symptoms and she had a lot of them. it seems to happen daily, yesterday it was in the evening and lasted about 4 hours. Betsey Squires MD [address] [place] [address], [phone], [facility], Jim. 01/13/2023 14:58:05 09/20/2023 text/html elevate blood gl ucose levelsshe normally doesnt check her sugars but was feeling weirdchecked the sugars and it was 270then mom came over and it was down to 150and then mom came over and it was down to 114 Betsey Squires MD [address] [place] [address], [phone], [facility], Jim. 09/21/2023 14:25:38 11/21/2024 text/html General Rash/Ski n LesionReported bypatient.Location:id m Quality:not itchy;painful;tendern ess Associated Symptoms:no fever Betsey Squires MD [address] [place] [address], [phone], [facility], Jessy 12/03/2024 18:19:21 OBGyn Episode No OBEpisode recorded.
[2024-12-06 22:06] VITALS: BP 114/85; PULSE 88; RESP 16; TEMP 36.7; O2SAT 97; BMI 32.5
== END 2024-12-06 23:39 | disposition left against medical advice (07) ==
LOC: ER 21:59
PROVIDERS: Emergency Provider Family Medicine; PCP Family Medicine
DX: Z53.21 Procedure and treatment not carried out due to patient leaving prior to being seen by health care provider (principal)

== ENCOUNTER 2024-12-08 21:44 | Emergency (ER) | payer BC, MEDICAID, SELFPAY ==
[2024-12-08 21:46] VITALS: BP 125/85; PULSE 80; RESP 16; TEMP 36.4; O2SAT 99; BMI 24.9
--- OUTSIDE RECORDS SUMMARY | 2024-12-08 21:53 | XMS_ITS | Data Portability ---
Author Organization RANDY Ramires [facility], [facility] Address [address] [address] Assessment Encounter Date Assessment Date Assessment LastModified [...] (hemogl obin A1c), blood 2023 024 [email or web address] [facility] ([facility]), [address] [place], [address], 09/20/2023 14:10:19 CMP, serum or plasma 2023 024 [email or web address] Formerly [facility], [address] [place] [address], [place], [address], 09/20/2023 14:10:19 Referral cardiol ogist referra l 2022 023 Not available 05/21/2023 12:52:52 rheumat ologist referra l 2022 023 [email or web address] Sergei Ernandez MD, [address] [place], [address], 02/01/2023 13:54:54 genetic s referra l 2022 023 [email or web address] Not available 03/01/2023 11:08:55 Procedures None recorde d. Surgeries None recorde d. Imaging US, extremi ty, nonvasc ular, limited - Lump, Lipoma? left extenso r elbow. 2024 025 [email or web address] [facility], [address] [place], [address], 12/04/2024 07:32:36 holter monitor [address] (Scheduling Orders), [address] [place], [address], 01/21/2023 11:57:30 Medication Orders None recorde d. Patient TargetsNo targets recorded. Patient InstructionsNo instructions recorded. Reason for Referral Genetics Referral for Hyperm obility of joint Referring Physician: [facility], Encounter Date: 12/15/2022 Placement Director Referral for Pain of multiple joints Referring Physician: [facility], Encounter Date: 12/28/2022 Radiology Technician Referral for Dy spnea Referring Physician: [facility], Encounter Date: 01/13/2023 Results Created Date Observation Date Name Description Value Unit Range Abnormal Flag Note LastModifiedBy Organization Detail LastModifiedTime 09/20/19 24 09/20/2023 CMP (FEMA LE) glucose 92.0 mg/dL 60.0-9 9.0 Not Available [facility] [address] [facility], [place], [address], 09/20/2023 13:54:57 09/20/19 24 09/20/2023 CMP (FEMA LE) BUN (blood urea nitrogen) 11.0 mg/dL 10.0-2 6.0 Not Available [facility] [address] [facility] [address] [address], [place], [address], 09/20/2023 13:54:57 09/20/19 24 09/20/2023 CMP (FEMA LE) creatinine (serum) 0.6 mg/dL 0.4-1. 5 Not Available [facility] [address] [facility], [place], [address], 09/20/2023 13:54:57 09/20/19 24 09/20/2023 CMP (FEMA LE) BUN/creatini ne ratio 18.33 ratio Not Available [facility] [address] [facility] [address] [address], [place], [address], 09/20/2023 13:54:57 09/20/19 24 09/20/2023 CMP (FEMA LE) eGFR calculated 127.5 Not Available [facility] [address] [facility] [address] [address], [place], [address], 09/20/2023 13:54:57 09/20/19 24 09/20/2023 CMP (FEMA LE) total protein 7.6 g/dL 6.0-8. 5 Not Available [facility] [address] [facility] [address] [address], [place], [address], 09/20/2023 13:54:57 09/20/19 24 09/20/2023 CMP (FEMA LE) total bilirubin 0.7 mg/dL 0.2-1. 3 Not Available [facility] [address] [facility] [address] [address], [place], [address], 09/20/2023 13:54:57 09/20/19 24 09/20/2023 CMP (FEMA LE) albumin 4.5 g/dL 3.5-5. 5 Not Available [facility] [address] [facility], [place], [address], 09/20/2023 13:54:57 09/20/19 24 09/20/2023 CMP (FEMA LE) globulin 3.1 calc Not Available [facility] [address] [facility] 1, [place], [address], 09/20/2023 13:54:57 09/20/19 24 09/20/2023 CMP (FEMA LE) AST (SGOT) 27.0 U/L 0.0-46 .0 Not Available [facility] [address] [facility] [address], [place], [address], 09/20/2023 13:54:57 09/20/19 24 09/20/2023 CMP (FEMA LE) altv (SGPT) 21.0 U/L 13.0-6 9.0 normal Not Available [facility] [address] [facility], [place], [address], 09/20/2023 13:54:57 09/20/19 24 09/20/2023 CMP (FEMA LE) A/G ratio 1.5 ratio Not Available [facility] [address] [facility] 1, [place], [address], 09/20/2023 13:54:57 09/20/19 24 09/20/2023 CMP (FEMA LE) ALP phos 54.0 U/L 30.0-1 40.0 normal Not Available [facility] [address] [facility] 1, [place], [address], 09/20/2023 13:54:57 09/20/19 24 09/20/2023 CMP (FEMA LE) calcium 9.5 mg/dL 8.4-10 .5 Not Available [facility] [address] [facility] 1, [place], [address], 09/20/2023 13:54:57 09/20/19 24 09/20/2023 CMP (FEMA LE) sodium 142.0 mmol/ L 136.0- 145.0 Not Available [facility] [address] [facility] 1, [place], [address], 09/20/2023 13:54:57 09/20/19 24 09/20/2023 CMP (FEMA LE) potassium 4.3 mmol/ L 3.5-5. 1 Not Available [facility] [address] [address], [place], [address], 09/20/2023 13:54:57 09/20/19 24 09/20/2023 CMP (FEMA LE) chloride 107.0 mmol/ L 98.0-1 10.0 normal Not Available [facility] [address] [address], [place], [address], 09/20/2023 13:54:57 09/20/19 24 09/20/2023 CMP (FEMA LE) C02 30.0 mmol/ L 22.0-3 1.0 Not Available [facility] [address] [facility] 1, [place], [address], 09/20/2023 13:54:57 09/20/19 24 09/20/2023 CMP (FEMA LE) anion gap 5.0 calc Not Available [facility] [address] [facility] 1, [place], [address], 09/20/2023 13:54:57 09/20/19 24 09/20/2023 CMP (FEMA LE) osmolality 292.3 calc Not Available [facility] [address] [facility] 1, [place], [address], 09/20/2023 13:54:57 09/20/19 24 09/20/2023 HbA1c (hemo globi n A1c), blood HbA1c 5.2 Not Available [facility] ([facility]) [address] [place], [address], 09/20/2023 11:16:24 10/24/19 24 10/18/2023 cardi ac stres s test No observ ation record ed. [email or web address] [facility] [address] [place], [address], 10/27/2023 12:52:12 Result Notes None recorded. Problems Name Problem SNOMED Code Status Onset Date Resolution Date Notes Provider Name and Address Organization Details Recorded Time Essential hypertension 92940255 Active 2023 RANJEET adams [facility] L[facility]LWill 11:13:29 Problem Notes None recorded. Procedures Surgical History Date Name Laterality Status Provider Name and Address Organization Details Recorded Time 0 delivery completed JAIME OTOOLE [facility] L.L.CBhavya 12/15/2022 14:39:51 0 Date of Last Pap Smear completed JAIME OTOOLE [facility], L.LBhavyaCBhavya 12/15/2022 14:38:28 Imaging Results None recorded. [...] Available Not Available No t Available erythromy marisa with ethanol 2 % topical gel APPLY [...] Updated DateTime 4 175.26 cm 30.4 kg/m2 11172.0 3 g 97.7 [degF] 97 % 97 % 77 /min 122/70 mm[Hg] RANJEET REYES [facility] L.L.CBhavya 4 11:13:10 Date Recorded Body weight Body temperature Oxygen saturation Oxygen saturation in Arterial blood by Pulse oximetry Heart rate Systolic And Diastolic Provider Name and Address Organization Details Last Updated DateTime 5 812581. 88 g 98.1 [degF] 98 % 98 % 81 /min 100/80 mm[Hg] JAIME OTOOLE [facility] L.L.CBhavya 5 12:09:38 Date Recorded Body weight Body mass index (BMI) Body height Body temperature Oxygen saturation Oxygen saturation in Arterial blood by Pulse oximetry Heart rate Systolic And Diastolic Provider Name and Address Organization Details Last Updated DateTime 3 76213.2 9 g 29.2 kg/m2 175.26 cm 99.2 [degF] 95 % 95 % 87 /min 118/80 mm[Hg] JAIME OTOOLE [facility] 3 14:37:14 Date Recorded Body height Body mass index (BMI) Body weight Body temperature Oxygen saturation Oxygen saturation in Arterial blood by Pulse oximetry Heart rate Systolic And Diastolic Provider Name and Address Organization Details Last Updated DateTime 3 175.26 cm 29.5 kg/m2 38594.4 7 g 98.2 [degF] 99 % 99 % 87 /min 130/80 mm[Hg] JAIME VILLALOBOSH XIANG [facility] L[facility]L.CBhavya 3 12:15:13 Date Recorded Body height Body mass index (BMI) Body weight Body temperature Oxygen saturation Oxygen saturation in Arterial blood by Pulse oximetry Heart rate Systolic And Diastolic Provider Name and Address Organization Details Last Updated DateTime 3 175.26 cm 29.5 kg/m2 08284.4 7 g 98.4 [degF] 98 % 98 % 80 /min 124/74 mm[Hg] RANJEET REYES [facility] L.LBhavyaCBhavya 3 12:31:51 Social History Question Answer Notes LastModified by [employer] Details LastModified Time Tobacco Smoking Status Current Every Day Smoker vape JAIME VILLALOBOSH XIANG [facility] L.L.CBhavya 12/15/2022 14:39:30 What Was The Date Of Your Most Recent Tobacco Screening? 11/21/2024 [email or web address] Information not available 11/21/2024 Sex: Unknown Functional Status Question Answer Note LastModified by [employer] Details LastModified Time Do you use any illicit or recreational drugs? No [email or web address] Information not available 09/20/2023 What is your level of alcohol consumption? None Information not available 09/20/2023 Mental Status None recorded. Family History Relationship Description Onset Age of this Age Resolved Age Notes LastModified by Organization Details LastModified Time Mother Environmenta l allergy [email or web address] Not available 11/27 14:46:15 Notes:maternal grandfather h [...] Recorded Time IPV 12/28/2001 completed [facility] 12/15/2022 14:37:27 MMR 12/28/2001 completed JAIME adams [facility] Jessy 12/15/2022 14:37:27 MMR 02/05/1997 completed JAIME adams [facility] Jessy 12/15/2022 14:37:27 Hep B, unspecified formulation 1996 completed JAIME adams [facility] Jessy 12/15/2022 14:37:27 Hep B, unspecified formulation 1996 completed JAIME adams [facility], Jessy 12/15/2022 14:37:27 Hep B, unspecified formulation 1996 completed JAIME adams [facility] 12/15/2022 14:37:27 OPV 10/17/1997 completed JAIME OTOOLE null, [facility] 12/15/2022 14:37:27 OPV 1996 completed JAIME OTOOLE null, [facility] 12/15/2022 14:37:27 OPV 02/05/1997 completed JAIME OTOOLE null, [facility] 12/15/2022 14:37:27 Hib (HbO) 1996 completed JAIME OTOOLE null, [facility] 12/15/2022 14:37:27 Hib (HbO) 02/05/1997 completed JAIME OTOOLE null, [facility] 12/15/2022 14:37:27 Hib (PRP-T) 10/17/1997 completed JAIME OTOOLE null, [facility] 12/15/2022 14:37:27 DTaP 10/17/1997 completed JAIME OTOOLE null, [facility] 12/15/2022 14:37:27 DTaP 1996 completed JAIME OTOOLE null, [facility] 12/15/2022 14:37:27 DTaP 12/28/2001 completed JAIME OTOOLE null, [facility] 12/15/2022 14:37:27 DTaP 02/05/1997 completed JAIME OTOOLE null, [facility] 12/15/2022 14:37:27 Past Encounters Encounter ID Performer Location Encounter Start Date Encounter Closed Date Diagnosis/Indication Diagnosis SNOMED-CT Code Diagnosis ICD10 Code Diagnosis Note [id number] Betsey Squires MD [facility] ([facility]) [address] [place] [phone] 12/15/2022 14:20:45 12/25/2022 21:50:55 Tight chest 80582468 R07.89 Not associated with exertion - which would make it very atypical for heart/lung issue. await ER records. consider dysautonom ia/POTS, anxiety Hypermobil ity of joint 979922870 R29.898 pt would like testing for EDS Adult heal th examination 145358268 Z00.00 [id number] Betsey Squires MD [facility] ([facility]) [address] [place] [phone] 12/28/2022 12:07:38 12/28/2022 14:49:47 Pain of multiple joints 58330861 M25.50 Postural o rthostatic tachycardia syndrome 525856525 G90.A possibly.. . [id number] Betsey Squires MD [facility] ([facility]) [address] [place] [phone] 01/13/2023 12:23:19 01/13/2023 15:00:30 Dyspnea 713858465 R06.00 [id number] Betsey Squires MD [facility] ([facility]) [address] [place] [phone] 5 09/20/2023 11:03:04 09/20/2023 15:45:22 Glucose level above reference range 93444141 R89.8 on home accucheck when not feeling well. [id number] Betsey Squires MD [facility] ([facility]) [address] [place] [phone] 5 11/21/2024 12:05:30 12/04/2024 07:32:36 Mass of skin 319078362 R22.9 lipoma vs other, difficult to appreciate [...] ID Guarantor Name 11/21/2024 1 BCMICHELLE-RANDY (PPO) [id number] 1 Rachel M Reyes [id number] Rachel M Reyes 12/04/2024 1 [employer] [place] (MEDICAID REPLACEMENT - HMO) [id number] Rachel M Reyes [id number] Rachel M [place] Notes Date Note Type Note Provider Name [...] be tested for it. Betsey Squires MD [address] [place] [address], [phone], [facility], Jessy 12/25/2022 11:29:23 12/28/2022 text/html DyspneaReported bypatient.Quality:squ eezing;tightness;can' t catch breath;suffocating;in ability to take a deep breath;hurts to breathe Severity:moderate Onset/Timing:daily Associated Symptoms:no chest pain; no fever; no chills; no sputum production;palpitatio ns;wheezing;fatigue;l ightheadedness;hoarse ness;seasonal allergies Pt is here for follow-up Betsey Squires MD [address] [place] [address], [phone], [facility], Jmi. 01/05/2023 15:13:43 01/13/2023 text/html DyspneaReported bypatient.Quality:squ eezing;tightness;can' [...] lasted about 4 hours. Betsey Squires MD [address] [place] [address], [phone], [facility], Jim. 01/13/2023 14:58:05 09/20/2023 text/html elevate blood gl ucose levelsshe normally doesnt check her sugars but was feeling weirdchecked the sugars and it was 270then mom came over and it was down to 150and then mom came over and it was down to 114 Betsey Squires MD [address] [place] [address], [phone], [facility], Jim. 09/21/2023 14:25:38 11/21/2024 text/html General Rash/Ski n LesionReported bypatient.Location:wy m Quality:not itchy;painful;tendern ess Associated Symptoms:no fever Betsey Squires MD [address] [place] [address], [phone], [facility], Jessy 12/03/2024 18:19:21 OBGyn Episode No OBEpisode recorded.
--- NOTE | 2024-12-08 22:10 | ECG_ITS ---
[facility] Test Date: 2024-12-08 Pat Name: Rachel Reyes Department: Room: Gender: Female Static Balancer: : 1995 Requested By: Jacquelyn Olson Order Number: [id number] Landon MD: Morgan Najera M.D. Measurements Intervals [place] Rate: 82 P: 41 [place]: 166 QRS: -16 QRSD: 96 T: 55 QT: 342 QTc: 401 Interpretive Statements SINUS RHYTHM POSSIBLE ANTERIOR MYOCARDIAL INFARCTION , OF INDETERMINATE AGE [30 ms Q WAVE IN V3/V4, OR R < 0.2 mV IN V4] Compared to ECG 10/17/2022 00:05:01 Myocardial infarct finding now present Sinus tachycardia no longer present Electronically Signed On 12-11-2024 10:08:46 CDT by Morgan Najera M.D. [email or web address]
--- NOTE | 2024-12-08 22:11 | XRR_ITS ---
PROCEDURE INFORMATION: Exam: XR Chest Exam date and time: 12/08/2024 10:15 PM Age: 29 years old Clinical indication: Chest pressure; C/O chest pain TECHNIQUE: Imaging protocol: Radiologic exam of the chest. Views: 1 view. COMPARISON: CR XR chest 1V portable [id number] 10/17/2022 12:42 AM FINDINGS: Lungs: Unremarkable. No consolidation. Pleural spaces: Unremarkable. No pleural effusion. No pneumothorax. Heart/Mediastinum: Unremarkable. No cardiomegaly. Bones/joints: Unremarkable. XR/XR chest 1V portable [id number] IMPRESSION: No acute findings.
--- NOTE | 2024-12-08 22:56 | ED_ITS ---
HPI - Chest Pain 2 General: Chief Complaint: Chest Pain Stated Complaint: Chest has a dropping feeling Time Seen by Provider: 12/08/24 22:10 History of Present Illness: Selected Entries 12/08/24 21:46 ED Triage Comment pt states she has chest pressure and it feels like a ' dropping sensatio n in the area. pt states a hx of car diac issues and meneses s an apointment wi th her cardiologis t on Tuesday. Patient reports ED with a pressure-like feeling as if she was kicked in the chest, synthetic anxiety, palpitations, and a sensation of radiation both up the neck, and sometimes the temples. She is concerned she is going to pass out. She has 2 small daughters. This typically subsides within a few minutes. Today was worse than normal. This just started this week. Patient is awaiting getting into cardiology for which she is already established and chronically on metoprolol succinate for inappropriate sinus tachycardia. Associated symptoms: Reports palpitations; Deny abdominal pain, dyspnea, fever(s), nausea, syncope or vomiting Related Data Home Medications ?Medication ?Instructions ?Recorded ?Confirmed acetaminophen 500 mg tablet 500 mg PO Q6H PRN 03/23/24 11/28/24 (Tylenol Extra Strength) Previous Rx's ?Medication ?Instructions ?Recorded levonorgestrel (Mirena) 1 device intrauterine .every 5 07/22/20 years #1 ea metoprolol tartrate 25 mg tablet 25 mg PO BID PRN Palp itations #60 03/23/24 tabs metoprolol succinate 25 mg 50 mg (2 x 25 mg) PO DAILY #180 12/03/24 tablet,extended release 24 hr tabs Allergies Allergy/AdvReac Type Severity Reaction Status Date / Time No Known Allergies Allergy Verified 06/06/24 13:19 Review of Systems 2 Const: Denies: fever(s) or chills Eyes: Denies: change in vision or blurry vision ENMT: Denies: throat pain Card: Reports: chest pain, palpitations, irregular heart rhythm and pre- syncope; Denies: syncope Resp: Denies: dyspnea or productive cough GI: Denies: abdominal pain, nausea or vomiting : Denies: flank pain or difficulty voiding Musc: Denies: neck pain or back pain Skin/Breast: Denies: rash or pruritus Neuro: Denies: headache(s) or numbness in extremities Psych: Reports: anxiety (synthetic); Denies: depression Endo: Denies: polyuria or polydipsia PFSH ED 2 PFSH: Medical History (Updated 12/09/24 @ 00:29 by SHANA Gallagher) Positive SHELBI (antinuclear antibody) Joint hyperextensibility of multiple sites Polyarthralgia PCOS (polycystic ovarian syndrome) Diagnosed with PCOS in May 2019 with irregular cycles and polycystic appearance of ovary on ultrasound. No pertinent past medical history Denies diabetes, asthma, hypertension, seizures, DVT/PE. PMD: none Surgical History Status post delivery 05/26/2020-- delivery at [facility] in [place], [place]. -Primary low transverse uterine incision with double layer closure and no extensions. By Dr. Morris ---done at 35 weeks and 5 days for preeclampsia with severe features of headaches with monochorionic diamniotic twin gestation. -Pathology of placenta confirmed monochorionic diamniotic placenta. Family History Family/Other Breast cancer Maternal aunt; diagnosed in her 40s Father Hypertension Grandfather Lung cancer maternal Denies family history of Colon cancer Ovarian cancer Diabetes Heart disease Hyperlipidemia Uterine cancer Thyroid disease Stroke Social History Smoking and tobacco/nicotine status: current every day tobacco/nicotine user (Patients uses a Vape. ) e-cigarettes E-cig/vape details: Pt Vapes Alcohol intake: never Substance/Drug Use: never Physical Exam 2 Const: COMMON NORMALS: no acute distress, average body habitus and patient oriented x3 HENMT: COMMON NORMALS: normocephalic and atraumatic HEAD & SCALP: n ormocephalic and atraumatic Eye: COMMON NORMALS: Equal, round and reactive pupils present and EOMs intact bilaterally PUPIL: Yes Equal, round and reactive pupils present Neck/C-Spine: COMMON NORMALS: full ROM and no lymphadenopathy Chest: COMMONS NORMALS: normal inspection of the chest and normal palpation of entire chest wall Resp: COMMON NORMALS: normal respiratory effort and No retractions Cardio: COMMON NORMALS: regular rate and regular rhythm RATE: regular rate RHYTHM: regular rhythm HEART SOUNDS: Murmur heart sound present (c/w mvp) systolic GI: COMMON NORMALS: Normal to inspection, nondistended, normoactive bowel sounds present, Soft to palpation and non-tender PALPATION: Yes Soft to palpation : COMMON NORMALS: Yes no CVA tenderness BLADDER/KIDNEY EXAM: Yes no CVA tenderness Back/Pelvis: COMMON NORMALS: no CVA tenderness Extremity: COMMON NORMALS: normal to inspection, full ROM and capillary refill normal Neuro: COMMON NORMALS: patient oriented x3 Skin: COMMON NORMALS: no rashes or lesions noted and no wounds GENERAL SKIN EXAM: no rashes or lesions noted Course 2 Vital Signs: Vital signs: Vital Signs Temperature 97.6 F 12/08/24 21:46 Pulse Rate 71 12/08/24 23:53 Respiratory Rate 16 12/08/24 23:53 Blood Pressure 111/71 12/08/24 23:53 Pulse Oximetry 97 12/08/24 23:53 Oxygen Delivery Me thod Room Air 12/08/24 23:53 MDM - Chest Pain Medical Decision Making Patient is a 29-year-old female with history of inappropriate sinus tachycardia on metoprolol succinate and compliant that presents with 1 week of feeling of getting kicked in the chest., Followed by symptomatic anxiety, which feels like it is radiating to both temples at times. EKG is unremarkable other than axis change from previous comparable. Labs are unremarkable. Patient needs to follow-up with cardiology. Discussed with patient. Medical Records I reviewed the patient's medical records. Lab Data 12/08/24 23:13 12/08/24 23:13 Radiology Impressions Chest X-Ray 12/08/24 22:11 IMPRESSION: No acute findings. Laboratory Results WBC 7.76 10^3/uL (3.29-11.43) 12/08/24 23:13 RBC 4.78 10^6/uL (3.85-5.65) 12/08/24 23:13 Hgb 13.30 g/dL (11.27-16.99) 12/08/24 23:13 Hct 39.9 % (36-47) 12/08/24 23:13 MCV 83.5 fl (85-98) L 12/08/24 23:13 MCH 27.8 pg (27-33) 12/08/24 23:13 MCHC 33.3 g/dL (30-55) 12/08/24 23:13 RDW 11.8 % (12.1-15.1) L 12/08/24 23:13 Plt Count 275 10^3/cmm (157-399) 12/08/24 23:13 MPV 10.3 fL (7.4-10.4) 12/08/24 23:13 Neut % (Auto) 52.0 % 12/08/24 23:13 Lymph % (Auto) 37.9 % 12/08/24 23:13 White % (Auto) 7.6 % 12/08/24 23:13 Eos % (Auto) 1.9 % 12/08/24 23:13 Baso % (Auto) 0.5 % 12/08/24 23:13 Neut # (Auto) 4.03 10^3/uL (1.8-7.7) 12/08/24 23:13 Lymph # (Auto) 2.9 10^3/uL (0.8-4.8) 12/08/24 23:13 White # (Auto) 0.6 10^3/uL (0.2-0.9) 12/08/24 23:13 Eos # (Auto) 0.2 10^3/uL (0.0-0.8) 12/08/24 23:13 Baso # (Auto) 0.0 10^3/uL (0.0-0.1) 12/08/24 23:13 Nucleated RBC % (auto) 0 % 12/08/24 23:13 Nucleated RBCs # 0.0 /100WBC 12/08/24 23:13 Sodium 139 mmol/L (136-145) 12/08/24 23:13 Potassium 4.0 mmol/L (3.5-5.1) 12/08/24 23:13 Chloride 104 mmol/L (98-107) 12/08/24 23:13 Carbon Dioxide 25 mmol/L (22-29) 12/08/24 23:13 Anion Gap 14.0 (5-19) 12/08/24 23:13 BUN 8 mg/dL (6-20) 12/08/24 23:13 Creatinine 0.5 mg/dL (0.5-0.9) 12/08/24 23:13 GFR Calculation 146.9 mL/min (90-130) H 12/08/24 23:13 Glucose 105 mg/dL (65-115) 12/08/24 23:13 Calculated Osmolality 287 mOsm/kg (285-295) 12/08/24 23:13 Calcium 9.5 mg/dL (8.5-10.5) 12/08/24 23:13 Magnesium 2.0 mg/dL (1.7-2.3) 12/08/24 23:13 Total Bilirubin 0.3 mg/dL (0.15-1.2) 12/08/24 23:13 AST 12 U/L (0-32) 12/08/24 23:13 ALT 13 U/L (0-33) 12/08/24 23:13 Alkaline Phosphatase 68 U/L (35-105) 12/08/24 23:13 Total Protein 7.0 g/dL (6.6-8.7) 12/08/24 23:13 Albumin 4.2 g/dL (3.5-5.2) 12/08/24 23:13 Globulin 2.8 g/dL (1.3-4.6) 12/08/24 23:13 TSH 1.68 uIU/mL (0.27-4.20) 12/08/24 23:13 HCG, Qual Negative (Negative) 12/08/24 23:13 All radiology interpretation(s) finalized by discharge ED provider radiology interpretation(s): no acute EKG Data EKG 1: Interpretation: Left axis, no ST segment elevation Discharge Plan Discharge Patient Disposition: Home Clinical Impression: Palpitations, MVP (mitral valve prolapse) Condition: Stable Prescriptions: No Action Mirena 20 mcg/24 hours (6 yrs) 52 mg intrauterine device 1 device intrauterine .every 5 years Qty: 1 0RF acetaminophen [Tylenol Extra Strength] 500 mg tablet 500 mg PO Q6H PRN metoprolol tartrate 25 mg tablet 25 mg PO BID PRN (Reason: Palpitations ) Qty: 60 5RF metoprolol succinate 25 mg tablet extended release 24 hr 50 mg PO DAILY Qty: 180 3RF Discharge Orders: Discharge ED (Routine); Ordered 12/09/24 Ordered By: Jacquelyn Olson Referrals: Betsey Squires MD [Primary Care Provider, Family Practice] Discharge Diet: Usual diet Discharge Activity: Resume usual activity Patient Instructions: Heart Palpitations (ED), Patient Portal & Vick Instructions Activity Restrictions/Additional Instructions: No caffeine Take your medication as prescribed Call Tuesday to set up a follow-up with your computer aided drafter No additional findings/concern were noted on this visit. Urine analysis was unable to be evaluated. Please give feedback to your doctor regarding your dosage of propranolol tonight Return to ED for additional symptoms. Print Language: Belarusian Coding Level of Care Code ED Meatman for Jacki Schafer
[2024-12-08 23:20] LABS: Hematocrit 39.9 % (36-47); Hemoglobin 13.30 g/dL (11.27-16.99); Mean Corpuscular HGB Conc 33.3 g/dL (30-55); Mean Corpuscular Hemoglobin 27.8 pg (27-33); Mean Corpuscular Volume 83.5 fl (85-98); Nucleated Red Blood Cells % 0 %; Platelet Count 275 10^3/cmm (157-399); Red Blood Count 4.78 10^6/uL (3.85-5.65); White Blood Count 7.76 10^3/uL (3.29-11.43)
[2024-12-08 23:34] LABS: HCG, Serum Qual Negative (Negative)
[2024-12-08 23:52] LABS: Alanine Aminotransferase 13 U/L (0-33); Albumin Level 4.2 g/dL (3.5-5.2); Alkaline Phosphatase 68 U/L (35-105); Anion Gap 14.0 (5-19); Aspartate Amino Transferase 12 U/L (0-32); Blood Urea Nitrogen 8 mg/dL (6-20); Calcium 9.5 mg/dL (8.5-10.5); Carbon Dioxide 25 mmol/L (22-29); Chloride 104 mmol/L (98-107); Creatinine Clr Calc Pharmacy 186.1234; Globulin 2.8 g/dL (1.3-4.6); Glucose 105 mg/dL (65-115); Magnesium 2.0 mg/dL (1.7-2.3); Osmolality Calculated 287 mOsm/kg (285-295); Potassium 4.0 mmol/L (3.5-5.1); Sodium 139 mmol/L (136-145); Thyroid Stimulating Hormone 1.68 uIU/mL (0.27-4.20); Total Protein 7.0 g/dL (6.6-8.7)
[2024-12-08 23:53] VITALS: BP 111/71; PULSE 71; RESP 16; O2SAT 97
[2024-12-09 00:21] VITALS: BP 107/70; PULSE 69; RESP 16; O2SAT 100
== END 2024-12-09 00:21 | disposition home or self-care (01) ==
PROVIDERS: Emergency Provider Physician Assistant; PCP Family Medicine
DX: I34.1 Nonrheumatic mitral (valve) prolapse (principal); R00.2 Palpitations; F17.290 Nicotine dependence, other tobacco product, uncomplicated
CPT/HCPCS: 36415; 71045; 80053; 83735; 84443; 84703; 85025; 93005; 99285; J9999